=== PATIENT | female | born 1995 | race Hispanic/Latino ===

== ENCOUNTER 2024-11-30 09:50 | Emergency (ER) | payer OTHER, SELFPAY ==
[~2024-11-30] VITALS: Ht 165.1 cm; Wt 75.7 kg
[2024-11-30] MEDS: ONDANSETRON 4MG ORAL DISINTEGRATING TAB PO ONE (11:24)
[2024-11-30 11:41] LABS: KETONE, URINE AUTO RFX 1+ mg/dL (NEGATIVE); LEUKOCYTE ESTERASE UR AUTO RFX NEGATIVE (NEGATIVE); MUCUS, URINE RFX SMALL (NEGATIVE); NITRITE, URINE AUTO RFX NEGATIVE (NEGATIVE); RBC, URINE AUTO RFX 4 /HPF (0-3); SQUAM EPITHELIAL CELL UR AURFX 0 /HPF (0-6); WBC, URINE AUTO RFX 0 /HPF (0-3)
[2024-11-30 12:32] VITALS: BP 119/79; TEMP 97.3; O2SAT 100
[2024-11-30] MEDS ORDERED: ONDA-282 PO (12:32)
== END 2024-11-30 12:39 | disposition home or self-care (01) ==
LOC: M ED 09:50
DX: R11.2 Nausea with vomiting, unspecified (principal); R19.7 Diarrhea, unspecified